=== PATIENT | female | born 1950 | race Caucasian/White ===

== ENCOUNTER 2019-11-14 12:50 | Inpatient (IN) | payer BC, MEDICARE ==
[~2019-11-14] VITALS: Ht 167.6 cm; Wt 81.8 kg
[2019-11-14] MEDS ORDERED: normal saline 1000ML IV soln IVB ONE (13:40)
[2019-11-14 13:58] LABS: BASOPHILS # (AUTO) 0.1 X10'3 (0-0.2); EOSINOPHILS # (AUTO) 0.1 X10'3 (0-0.9); HEMOGLOBIN 15.3 g/dl (12.0-16.0); LYMPHOCYTES # (AUTO) 2.3 X10'3 (1.1-4.8); MEAN CORPUSCULAR HEMOGLOBIN 30.4 PG (27.0-31.0); MEAN CORPUSCULAR HGB CONC 33.3 g/dL (33.0-36.5); MEAN CORPUSCULAR VOLUME 91.4 FL (78-98); MONOCYTES # (AUTO) 0.7 X10'3 (0-0.9); MONOCYTES % (AUTO) 7.5 % (2-12); NEUTROPHILS # (AUTO) 5.7 X10'3 (1.8-7.7); NEUTROPHILS % (AUTO) 64.5 % (42-75); PLATELET COUNT 291 X10'3 (140-440); RED BLOOD COUNT 5.04 X10'6 (4.20-5.60); RED CELL DISTRIBUTION WIDTH 13.4 % (11.5-14.5); WHITE BLOOD COUNT 8.9 X10'3 (4.5-11.0)
[2019-11-14 14:14] LABS: ALANINE AMINOTRANSFERASE 24 U/L (12-78); ALBUMIN 3.8 G/DL (3.4-5.0); ALBUMIN/GLOBULIN RATIO 1.2 (1.1-1.5); ALKALINE PHOSPHATASE 79 IU/L (46-116); ANION GAP 11 (8-16); ASPARTATE AMINO TRANSFERASE 21 U/L (10-37); BILIRUBIN,TOTAL 0.4 MG/DL (0.1-1.0); BLOOD UREA NITROGEN 11 MG/DL (7-18); BUN/CREATININE RATIO 16.9 (6.6-38.0); CALCIUM 9.5 MG/DL (8.5-10.1); CHLORIDE 105 MMOL/L (99-107); CREATININE 0.65 MG/DL (0.40-0.90); GLUCOSE 93 MG/DL (70-104); LIPASE 583 U/L (73-393); POTASSIUM 4.1 MMOL/L (3.5-5.1); SODIUM 143 MMOL/L (135-145); TOTAL CARBON DIOXIDE 27.2 MMOL/L (24-32); TOTAL PROTEIN 7.1 G/DL (6.4-8.2); eGFR > 90 ML/MIN
[2019-11-14] MEDS ORDERED: pantoprazole 40mg Tablet.DR PO STA (14:18)
[2019-11-14] MEDS ORDERED: mag hydrox/Alum hydrox/simeth 30ml oral suspension PO ONE (14:20)
[2019-11-14 14:24] LABS: CLARITY,URINE CLEAR (Clear); COLOR,URINE STRAW (Yellow); GLUCOSE, URINE NEGATIVE (Neg); KETONES,URINE TRACE mg/dl (Neg); LEUKOCYTE ESTERASE ,URINE NEGATIVE (Neg); NITRITES, URINE NEGATIVE (Neg); OCCULT BLOOD,URINE SMALL (Neg); PH,URINE 6.5 (4.8-8.0); PROTEIN,URINE NEGATIVE (Neg); UROBILINOGEN,URINE 0.2 E.U/dL (0.2-1.0)
[2019-11-14 14:25] LABS: UA COLLECTION TYPE CLN CATCH MIDSTREAM
[2019-11-14 14:35] LABS: MUCUS STRANDS FEW /LPF (Neg); SQUAMOUS EPITHELIAL CELL,UR FEW /LPF (FEW)
[2019-11-14 14:36] LABS: BACTERIA,URINE 1+ /HPF (Neg); RBC,URINE 0-2 /HPF (0-2); WBC,URINE 0-4 /HPF (0-4)
[2019-11-14] MEDS ORDERED: morphine 4 MG/ML inj SYRINge IV ONE (15:40)
[2019-11-14] MEDS ORDERED: ondansetron/PF 4mg/2ml inj IV ONE (15:40)
[2019-11-14] MEDS ORDERED: TRAZ-251 PO (15:49)
[2019-11-14] MEDS ORDERED: DEXL60CA3 PO (15:49)
[2019-11-14] MEDS ORDERED: ESTR10TA9 VG (15:49)
[2019-11-14] MEDS ORDERED: FLUT16SP26 NAS (15:49)
[2019-11-14] MEDS ORDERED: EZET10TA48 PO (15:49)
[2019-11-14] MEDS ORDERED: LEVO88TA7 PO (15:49)
[2019-11-14] MEDS ORDERED: FLEC50TA PO (15:49)
[2019-11-14] MEDS ORDERED: ASPI-1475 PO (15:49)
[2019-11-14] MEDS ORDERED: magnesium hydroxide 30ml (MOM) UD suspension PO PRN (15:50)
[2019-11-14] MEDS ORDERED: mag hydrox/Alum hydrox/simeth 30ml oral suspension PO PRN (15:50)
[2019-11-14] MEDS ORDERED: ondansetron/PF 4mg/2ml inj IV PRN (15:50)
[2019-11-14] MEDS ORDERED: acetaminophen 325mg tablet PO PRN (15:50)
[2019-11-14] MEDS ORDERED: morphine 2 MG/ML inj. syringe IV PRN (15:50)
[2019-11-14] MEDS ORDERED: ESTRADIOL VAGINAL VG SCH (16:00)
[2019-11-14] MEDS: normal saline 1000ml 1,000 ML IV SCH (16:14)
--- NOTE | 2019-11-14 17:37 | NUR ---
Patient in room ED 15. I have received report from NAVID Isbell and had the opportunity to ask questions and assume patient care.
[2019-11-14 17:50] VITALS: BP 163/99
--- NOTE | 2019-11-14 17:50 | NUR ---
Pt arrived to surgical floor via gurney, accompanied by RN. Pt settled in bed with call light in reach.
--- NOTE | 2019-11-14 18:35 | NUR ---
Patient in room [facility] 346A. I have received report from NAVID Musa and had the opportunity to ask questions and assume patient care. Patient is awake and alert on room air, in no apparent distress. Will continue to monitor.
--- NOTE | 2019-11-14 18:44 | NUR ---
Problems reprioritized. Patient report given, questions answered & plan of care reviewed with NAVID Katz.
[2019-11-14 19:00] VITALS: BP 174/90
[2019-11-14] MEDS: heparin, porcine 5000 units/ml vial SQ SCH (19:45)
[2019-11-14] MEDS: diatr meglu/diatrizoate 30ml oral sol.-(3 dose) bottle PO SCH (20:14)
[2019-11-14] MEDS: traZODone 50mg tablet PO SCH (20:14)
[2019-11-14] MEDS: morphine 2 MG/ML inj. syringe IV PRN (20:15)
[2019-11-15] VITALS: BP 142/76
[2019-11-15] MEDS: morphine 2 MG/ML inj. syringe IV PRN ×4 (00:24→21:40)
[2019-11-15] MEDS: normal saline 1000ml 1,000 ML IV SCH ×3 (03:02→19:15)
[2019-11-15 05:10] LABS: BASOPHILS % (AUTO) 0.5 % (0-1); EOSINOPHILS % (AUTO) 0 % (0-6); HEMATOCRIT 44.9 % (35.0-45.0); HEMOGLOBIN 14.6 g/dl (12.0-16.0); LYMPHOCYTES # (AUTO) 1.4 X10'3 (1.1-4.8); LYMPHOCYTES % (AUTO) 19.9 % (21-51); MEAN CORPUSCULAR HGB CONC 32.5 g/dL (33.0-36.5); MEAN CORPUSCULAR VOLUME 92.4 FL (78-98); MEAN PLATELET VOLUME 7.2 FL (7.4-10.4); MONOCYTES # (AUTO) 0.4 X10'3 (0-0.9); MONOCYTES % (AUTO) 5.2 % (2-12); NEUTROPHILS # (AUTO) 5.4 X10'3 (1.8-7.7); NEUTROPHILS % (AUTO) 74.4 % (42-75); PLATELET COUNT 294 X10'3 (140-440); RED BLOOD COUNT 4.86 X10'6 (4.20-5.60); RED CELL DISTRIBUTION WIDTH 13.7 % (11.5-14.5); WHITE BLOOD COUNT 7.2 X10'3 (4.5-11.0)
[2019-11-15 05:24] LABS: ALBUMIN 3.2 G/DL (3.4-5.0); ANION GAP 9 (8-16); BLOOD UREA NITROGEN 9 MG/DL (7-18); BUN/CREATININE RATIO 13.2 (6.6-38.0); CALCIUM 8.2 MG/DL (8.5-10.1); CHLORIDE 109 MMOL/L (99-107); CREATININE 0.68 MG/DL (0.40-0.90); GLUCOSE 132 MG/DL (70-104); POTASSIUM 4.4 MMOL/L (3.5-5.1); SODIUM 145 MMOL/L (135-145); TOTAL CARBON DIOXIDE 26.7 MMOL/L (24-32); eGFR 86 ML/MIN
--- NOTE | 2019-11-15 06:58 | NUR ---
Problems reprioritized. Patient report given, questions answered & plan of care reviewed with NAVID Clark.
[2019-11-15 07:00] VITALS: BP 111/52
--- NOTE | 2019-11-15 07:02 | NUR ---
Patient in room [facility] 346. I have received report from NAVID Katz and had the opportunity to ask questions and assume patient care.
[2019-11-15] MEDS: heparin, porcine 5000 units/ml vial SQ SCH ×2 (07:31→19:26)
[2019-11-15] MEDS: diatr meglu/diatrizoate 30ml oral sol.-(3 dose) bottle PO SCH ×2 (07:42→11:03)
[2019-11-15] MEDS: ezetimibe 10mg tablet PO SCH (07:42)
[2019-11-15] MEDS: aspirin 81mg tablet.DR PO SCH (07:42)
[2019-11-15] MEDS: pantoprazole 40mg Tablet.DR PO SCH (07:42)
[2019-11-15] MEDS: flecainide 50mg tablet PO SCH (07:42)
[2019-11-15] MEDS: levoTHYROXINE 88mcg tablet PO SCH (07:42)
[2019-11-15] MEDS ORDERED: iohexol 300mg/ml 100ml inj. ONE (11:08)
[2019-11-15 11:53] VITALS: BP 139/86
[2019-11-15] MEDS ORDERED: methylnaltrexone br 12mg/0.6ml inj***SubQ only SQ SCH (13:10)
--- NOTE | 2019-11-15 13:29 | NUR ---
PAGER ID: [phone] MESSAGE: [id number] Doretha Juan: Regarding Relistor: It says contraindicated for bowel obstruction. CT is very positive it is has resolved, so it safe to give? NAVID Clark Ext [phone]
[2019-11-15 18:00] VITALS: BP 132/73
--- NOTE | 2019-11-15 18:06 | NUR ---
Received report from NAVID Clark. Patient is awake and alert on room air, in no apparent distress. Call light and items of frequent use within reach. Will continue to monitor.
--- NOTE | 2019-11-15 18:19 | NUR ---
Problems reprioritized. Patient report given, questions answered & plan of care reviewed with NAVID Katz.
[2019-11-15] MEDS: traZODone 50mg tablet PO SCH (21:39)
[2019-11-16] VITALS: BP 124/62
--- NOTE | 2019-11-16 06:30 | NUR ---
Patient in room [facility] 346. I have received report from NAVID KNOWLES and had the opportunity to ask questions and assume patient care.
--- NOTE | 2019-11-16 06:30 | NUR ---
Problems reprioritized. Patient report given, questions answered & plan of care reviewed with NAVID Allen.
[2019-11-16 06:42] LABS: HEMATOCRIT 35.9 % (35.0-45.0); HEMOGLOBIN 12.2 g/dl (12.0-16.0); MEAN CORPUSCULAR HEMOGLOBIN 30.8 PG (27.0-31.0); MEAN CORPUSCULAR HGB CONC 34.1 g/dL (33.0-36.5); MEAN CORPUSCULAR VOLUME 90.3 FL (78-98); MEAN PLATELET VOLUME 6.9 FL (7.4-10.4); PLATELET COUNT 232 X10'3 (140-440); RED BLOOD COUNT 3.98 X10'6 (4.20-5.60); RED CELL DISTRIBUTION WIDTH 13.6 % (11.5-14.5); WHITE BLOOD COUNT 4.9 X10'3 (4.5-11.0)
[2019-11-16 06:49] LABS: ALBUMIN 2.7 G/DL (3.4-5.0); ANION GAP 4 (8-16); BLOOD UREA NITROGEN 5 MG/DL (7-18); CHLORIDE 109 MMOL/L (99-107); GLUCOSE 79 MG/DL (70-104); POTASSIUM 3.9 MMOL/L (3.5-5.1); SODIUM 144 MMOL/L (135-145); TOTAL CARBON DIOXIDE 31.1 MMOL/L (24-32); eGFR > 90 ML/MIN
[2019-11-16 07:00] VITALS: BP 134/54
[2019-11-16 07:31] LABS: PLATELET ESTIMATE NORMAL; TOTAL CELLS COUNTED 100
[2019-11-16] MEDS: pantoprazole 40mg Tablet.DR PO SCH (07:50)
[2019-11-16] MEDS: flecainide 50mg tablet PO SCH (07:50)
[2019-11-16] MEDS: aspirin 81mg tablet.DR PO SCH (07:50)
[2019-11-16] MEDS: ezetimibe 10mg tablet PO SCH (07:50)
[2019-11-16] MEDS: levoTHYROXINE 88mcg tablet PO SCH (07:50)
[2019-11-16] MEDS: heparin, porcine 5000 units/ml vial SQ SCH (07:51)
[2019-11-16] MEDS: normal saline 1000ml 1,000 ML IV SCH (07:54)
[2019-11-16] MEDS ORDERED: DOCU-148 PO (10:37)
[2019-11-16 11:00] VITALS: BP 152/87
--- NOTE | 2019-11-16 12:02 | NUR ---
PATIENT STABLE AND APPROPRIATE FOR DISCHARGE, TELE TAKEN OFF, IV TAKEN OUT, EDUCATION GIVEN, MEDS CALLED IN TO PREFERRED PHARMACY, ALL BELONGINGS SENT WITH PATIENT, PATIENT WALKED TO LOBBY BY AIDE TO AN AWAITING CAR WHERE WILL TAKE PATIENT HOME
[2019-11-17] MEDS ORDERED: methylnaltrexone br 12mg/0.6ml inj***SubQ only SQ SCH (08:00)
== END 2019-11-16 12:15 | disposition home or self-care (01) | DRG 390 ==
LOC: ER 12:51 → ED HOLD 15:50 → SUR 3N 17:46
PROVIDERS: ADMIT Family Medicine; ATTEND Internal Medicine
DX: K56.600 Partial intestinal obstruction, unspecified as to cause (principal); E03.9 Hypothyroidism, unspecified; K21.9 Gastro-esophageal reflux disease without esophagitis; R74.8 Abnormal levels of other serum enzymes; Z98.84 Bariatric surgery status; Z88.8 Allergy status to other drugs, medicaments and biological substances; Z90.49 Acquired absence of other specified parts of digestive tract
CPT/HCPCS: 36415; 74176; 74177; 80048; 80053; 81001; 83690; 85025; 87081; 99285; G0378; J2270; J2405; J7030; Q9963; Q9967